=== PATIENT | male | born 1955 | race Caucasian/White ===

== ENCOUNTER 2016-12-31 08:42 | Outpatient (CLI) | payer BC ==
[2016-12-31 09:55] LABS: ALT (SGPT) 28 U/L (0-55); AST (SGOT) 20 U/L (5-34); Alkaline Phosphatase 95 U/L (40-150); Anion Gap 15 mmol/L (10-20); BUN (Urea Nitrogen) 9 mg/dL (8.4-25.7); Bilirubin, Total 1.2 mg/dL (0.2-1.2); Calc. Creatinine Clearance 0 mL/min (70-130); Calcium 9.3 mg/dL (7.8-10.44); Carbon Dioxide 26 mmol/L (23-31); Chloride 106 mmol/L (98-107); Estimated GFR-MDRD 87; Globulin 2.9 g/dL (2.4-3.5); Protein, Total 7.5 g/dL (5.8-8.1)
[2016-12-31 10:01] LABS: Hemoglobin A1c 5.7 % (4.0-6.0)
== END 2016-12-31 08:43 | disposition home or self-care (01) ==
LOC: BURLAB 08:42
PROVIDERS: ATTEND Family Medicine
DX: E78.1 Pure hyperglyceridemia (principal); R73.09 Other abnormal glucose; K58.9 Irritable bowel syndrome, unspecified
CPT/HCPCS: 36415; 80053; 80061; 83036

== ENCOUNTER 2017-07-15 08:27 | Outpatient (CLI) | payer BC ==
[2017-07-15 09:10] LABS: ALT (SGPT) 21 U/L (8-55); AST (SGOT) 15 U/L (5-34); Albumin 4.4 g/dL (3.4-4.8); Alkaline Phosphatase 99 U/L (40-150); Anion Gap 13 mmol/L (10-20); BUN (Urea Nitrogen) 8 mg/dL (8.4-25.7); Calc. Creatinine Clearance 0 mL/min (70-130); Calcium 9.1 mg/dL (7.8-10.44); Carbon Dioxide 25 mmol/L (23-31); Cardiac Risk 6.7 (Less than 4.5); Chloride 107 mmol/L (98-107); Cholesterol 161 mg/dl (< 200 Desired); Estimated GFR-MDRD Greater than 90; Globulin 2.5 g/dL (2.4-3.5); Glucose 111 mg/dL (80-115); HDL Cholesterol 24 mg/dL (>60 Neg Risk); Protein, Total 6.9 g/dL (5.8-8.1); Sodium 141 mmol/L (136-145); Triglycerides 446 mg/dL (Less than 150)
[2017-07-15 09:24] LABS: #Basophils 0.1 thou/uL (0.0-0.2); #Eosinphils 0.1 thou/uL (0.0-0.7); #Lymphocytes 3.6 thou/uL (1.20-3.40); #Monocytes 0.7 thou/uL (0.11-0.59); #Neutrophils 4.6 thou/uL (1.40-6.50); %Basophils 1.2 % (0.0-1.0); %Eosinophils 1.3 % (0.0-10.0); %Lymphocytes 39.4 % (21.0-51.0); %Monocytes 7.4 % (0.0-10.0); %Neutrophils 50.8 % (42.0-75.0); Hemoglobin 15.8 g/dL (14.0-18.0); Mean Corpuscular HGB CONC 38.5 g/dL (32.0-36.0); Mean Corpuscular Hemoglobin 34.9 pg (27.0-31.0); Mean Corpuscular Volume 90.8 fl (80.0-94.0); Platelet Count 246 thou/uL (130-400); RBC Distribution Width 10.8 % (11.5-14.5); Red Blood Cell (RBC) Count 4.53 mill/uL (4.70-6.10); White Blood Cell (WBC) Count 9.1 thou/uL (4.8-10.8)
[2017-07-15 09:33] LABS: Hemoglobin A1c 5.8 % (4.0-6.0)
== END 2017-07-15 08:28 | disposition home or self-care (01) ==
LOC: BURLAB 08:27
PROVIDERS: ATTEND Nurse Practitioner
DX: R73.09 Other abnormal glucose (principal); E78.1 Pure hyperglyceridemia
CPT/HCPCS: 36415; 80053; 80061; 83036; 84443; 85025

== ENCOUNTER 2019-04-11 19:14 | Emergency (ER) | payer BC ==
[2019-04-11] MEDS ORDERED: diphenhydrAMINE 50 MG/ML VIAL ONE (19:38)
[2019-04-11] MEDS ORDERED: methylPREDNISolone Sod Succ/PF 125 MG/2 ML VIAL ONE (19:38)
== END 2019-04-11 22:20 | disposition home or self-care (01) ==
LOC: BURERS 19:14
DX: T78.2XXA Anaphylactic shock, unspecified, initial encounter (principal)
CPT/HCPCS: 96374; 96375; J1200; J2930

== ENCOUNTER 2020-01-06 23:49 | Emergency (ER) | payer BC ==
[2020-01-07 00:35] LABS: #Basophils 0.1 thou/uL (0.0-0.2); #Eosinphils 0.3 thou/uL (0.0-0.7); #Lymphocytes 3.4 thou/uL (1.20-3.40); #Monocytes 0.6 thou/uL (0.11-0.59); #Neutrophils 3.6 thou/uL (1.40-6.50); %Basophils 1.6 % (0.0-1.0); %Lymphocytes 42.4 % (21.0-51.0); %Monocytes 7.6 % (0.0-10.0); %Neutrophils 44.4 % (42.0-75.0); Mean Corpuscular HGB CONC 35.8 g/dL (32.0-36.0); Mean Corpuscular Hemoglobin 32.1 pg (27.0-31.0); Mean Corpuscular Volume 89.6 fL (78.0-98.0); Mean Platelet Volume 9.2 fL (7.4-10.4); Platelet Count 230 thou/uL (130-400); RBC Distribution Width 11.2 % (11.5-14.5); Red Blood Cell (RBC) Count 4.67 mill/uL (4.70-6.10)
[2020-01-07 00:45] LABS: ALT (SGPT) 19 U/L (8-55); AST (SGOT) 20 U/L (5-34); Albumin 4.6 g/dL (3.4-4.8); Alkaline Phosphatase 107 U/L (40-110); Anion Gap 16 mmol/L (10-20); BUN (Urea Nitrogen) 9 mg/dL (8.4-25.7); Bilirubin, Total 0.4 mg/dL (0.2-1.2); Calc. Creatinine Clearance 0 mL/min (70-130); Calcium 8.9 mg/dL (7.8-10.44); Carbon Dioxide 23 mmol/L (23-31); Chloride 105 mmol/L (98-107); Estimated GFR-MDRD Greater than 90; Globulin 2.7 g/dL (2.4-3.5); Glucose 119 mg/dL (80-115); Potassium 3.6 mmol/L (3.5-5.1); Protein, Total 7.3 g/dL (5.8-8.1); Sodium 140 mmol/L (136-145)
[2020-01-07] MEDS ORDERED: Lisinopril 20 MG TAB ONE (01:03)
--- NOTE | 2020-01-07 06:41 | RAD ---
PORTABLE CHEST: Date: 01/07/2020 An AP portable film at 0024 hours is compared with an 09/16/15 study. The heart is normal in size and the lungs are clear. No infiltrate or effusion seen. Trachea is midli ne. IMPRESSION: No acute thoracic findings. POS: HOME
== END 2020-01-07 01:16 | disposition home or self-care (01) ==
LOC: BURERS 23:49
DX: I10 Essential (primary) hypertension (principal); E78.5 Hyperlipidemia, unspecified
CPT/HCPCS: 71045; 80053; 84484; 85025; 93005

== ENCOUNTER 2021-01-13 06:08 | Emergency (ER) | payer BC ==
[2021-01-13] MEDS ORDERED: Nitroglycerin 0.4 MG TAB 1 EACH ONE (06:28)
[2021-01-13] MEDS ORDERED: Aspirin Chewable 81 MG TAB ONE (06:28)
[2021-01-13 06:31] LABS: #Basophils 0.1 thou/uL (0.0-0.2); #Eosinphils 0.2 thou/uL (0.0-0.7); #Lymphocytes 3.3 thou/uL (1.20-3.40); #Monocytes 0.7 thou/uL (0.11-0.59); #Neutrophils 3.4 thou/uL (1.40-6.50); %Basophils 0.9 % (0.0-1.0); %Eosinophils 2.5 % (0.0-10.0); %Lymphocytes 43.4 % (21.0-51.0); %Monocytes 8.6 % (0.0-10.0); %Neutrophils 44.7 % (42.0-75.0); Mean Corpuscular HGB CONC 34.6 g/dL (32.0-36.0); Mean Corpuscular Hemoglobin 32.2 pg (27.0-31.0); Mean Corpuscular Volume 92.9 fL (78.0-98.0); Mean Platelet Volume 8.8 fL (7.4-10.4); Platelet Count 201 thou/uL (130-400); RBC Distribution Width 11.1 % (11.5-14.5); Red Blood Cell (RBC) Count 4.65 mill/uL (4.70-6.10); White Blood Cell (WBC) Count 7.5 thou/uL (4.8-10.8)
[2021-01-13 06:42] LABS: PTT 31.7 sec (22.9-36.1)
[2021-01-13 06:48] LABS: ALT (SGPT) 27 U/L (8-55); AST (SGOT) 19 U/L (5-34); Albumin 4.1 g/dL (3.4-4.8); Alkaline Phosphatase 80 U/L (40-110); Anion Gap 15 mmol/L (10-20); BUN (Urea Nitrogen) 9 mg/dL (8.4-25.7); Bilirubin, Total 0.7 mg/dL (0.2-1.2); Calc. Creatinine Clearance 0 mL/min (70-130); Calcium 8.6 mg/dL (7.8-10.44); Carbon Dioxide 23 mmol/L (23-31); Chloride 104 mmol/L (98-107); Globulin 2.6 g/dL (2.4-3.5); Glucose 111 mg/dL (80-115); Potassium 3.6 mmol/L (3.5-5.1); Protein, Total 6.7 g/dL (5.8-8.1); Sodium 138 mmol/L (136-145)
[2021-01-13] MEDS ORDERED: Enoxaparin Sodium 100 MG/ML SYRINGE ONE (06:59)
[2021-01-13 07:07] LABS: CKMB 1.6 ng/mL (0-6.6)
== END 2021-01-13 08:15 | disposition short-term general hospital (02) ==
LOC: BURERS 06:08
DX: I21.4 Non-ST elevation (NSTEMI) myocardial infarction (principal); E78.5 Hyperlipidemia, unspecified; I10 Essential (primary) hypertension; Z79.899 Other long term (current) drug therapy
CPT/HCPCS: 71045; 80053; 82553; 83880; 84484; 85025; 85610; 85730; 93005; 94760; 96372; J1650